=== PATIENT | male | born 1985 | race Caucasian/White ===

== ENCOUNTER 2017-11-20 05:57 | Inpatient (IN) | payer BC ==
[~2017-11-20 05:57] MED LIST: CEFAZOLIN 2 GM/50 ML (PMX) 50 ML IVPB
[2017-11-20] MEDS: LACTATED RINGER'S 1,000 ML IV* (06:30)
[2017-11-20 06:57] LABS: ADD MAN DIFF? NO
[2017-11-20] MEDS ORDERED: PROPOFOL 200 MG INJ (07:00)
[2017-11-20 07:01] LABS: WHITE BLOOD COUNT 9.1 10^3/ul (4.8-10.8)
[2017-11-20 07:01] LABS: BASOPHILS % 0.4 % (0.0-2.0); EOSINOPHILS # 0.3 10^3/ul (0.0-0.5); EOSINOPHILS % 3.3 % (0.0-7.0); HEMATOCRIT 46.6 % (42.0-52.0); HEMOGLOBIN 16.3 g/dl (14.0-18.0); LYMPHOCYTES # 3.3 10^3/ul (0.8-2.9); LYMPHOCYTES % 36.3 % (15.0-51.0); MEAN CORPUSCULAR HEMOGLOBIN 29.2 pg (29.0-33.0); MEAN CORPUSCULAR VOLUME 83.4 fl (82.0-101.0); MEAN PLATELET VOLUME 10.2 fl (7.4-10.4); MONOCYTE # 0.7 10^3/ul (0.3-0.9); MONOCYTES % 8.1 % (0.0-11.0); NEUTROPHIL # 4.7 10^3/ul (1.6-7.5); NEUTROPHILS % 51.5 % (39.0-77.0); PLATELET COUNT 223 10^3/UL (140-415); RED BLOOD COUNT 5.59 10^6/ul (4.70-6.10); RED CELL DISTRIBUTION WIDTH 12.1 % (11.5-14.5)
[2017-11-20 07:19] LABS: ALANINE AMINOTRANSFERASE 29 IU/L (13-69); ALBUMIN 4.9 g/dl (3.3-4.9); ALBUMIN/GLOBULIN RATIO 1.63; ALKALINE PHOSPHATASE 59 IU/L (42-121); ANION GAP 14 (8-16); ASPARTATE AMINO TRANSFERASE 33 IU/L (15-46); BILIRUBIN,INDIRECT 0.4 mg/dl (0-1.1); BILIRUBIN,TOTAL 0.4 mg/dl (0.2-1.3); BLOOD UREA NITROGEN 16 mg/dl (7-20); CALCIUM 9.7 mg/dl (8.4-10.2); CARBON DIOXIDE 27 mmol/L (21-31); CHLORIDE 108 mmol/L (97-110); CREATININE 0.73 mg/dl (0.61-1.24); GLUCOSE 94 mg/dl (70-220); POTASSIUM 4.1 mmol/L (3.5-5.1); SODIUM 145 mmol/L (135-144); TOTAL PROTEIN 7.9 g/dl (6.1-8.1)
[2017-11-20 07:22] LABS: INR 0.94; PROTIME 12.7 Sec (11.9-14.9)
[2017-11-20 07:23] LABS: PARTIAL THROMBOPLASTIN TIME 31.3 Sec (25.0-35.0)
[2017-11-20] MEDS ORDERED: PROPOFOL 20 ML (08:02)
[2017-11-20] MEDS ORDERED: LIDOCAINE 2% (SDV) 5 ML INJ (08:03)
[2017-11-20] MEDS ORDERED: SUCCINYLCHOLINE CHLORIDE 100 MG/5 ML SYG IV (08:03)
[2017-11-20] MEDS ORDERED: MIDAZOLAM 1 MG/ML 2 ML INJ (08:03)
[2017-11-20] MEDS ORDERED: ROCURONIUM 50 MG INJ (08:03)
[2017-11-20] MEDS: BUPIVACAINE 0.25%/EPI (MDV) 50 ML VIAL INJ (08:29)
[2017-11-20] MEDS: THROMBIN 5000 UNIT VIAL (08:29)
[2017-11-20] MEDS: POLYMYXIN/BACITRACIN 1L IRRIG IRR (08:29)
[2017-11-20] MEDS: HEMOSTATIC MATRIX SYG ZFS (08:29)
[2017-11-20] MEDS: CEFAZOLIN 2 GM/50 ML (PMX) 50 ML IVPB (09:00)
[2017-11-20] MEDS ORDERED: FAMOTIDINE 20 MG INJ (09:06)
[2017-11-20] MEDS ORDERED: ONDANSETRON 4 MG INJ (09:06)
[2017-11-20] MEDS ORDERED: DEXAMETHASONE 4 MG/ML 1 ML INJ (09:06)
[2017-11-20] MEDS ORDERED: MEPERIDINE 25 MG INJ IV (09:30)
[2017-11-20] MEDS ORDERED: hydrALAzine 20 MG INJ IV (09:30)
[2017-11-20] MEDS ORDERED: LABETALOL HCL 20MG INJ IV ×2 (09:30→12:00)
[2017-11-20] MEDS ORDERED: ONDANSETRON 4 MG INJ IV ×2 (09:30→11:00)
[2017-11-20] MEDS ORDERED: PROCHLORPERAZINE 10 MG INJ IV (09:30)
[2017-11-20] MEDS ORDERED: DIPHENHYDRAMINE 50 MG INJ IV (09:30)
[2017-11-20] MEDS ORDERED: FENTAnyl 50 MCG/ML VIAL IV ×3 (09:30)
[2017-11-20] MEDS ORDERED: HYDROmorphONE 1 MG/5 ML IV SYRINGE IV ×3 (09:30)
[2017-11-20] MEDS ORDERED: POLYMYXIN/BACITRACIN 1L IRRIG (10:06)
[2017-11-20] MEDS: BETAMET NA PHOS/AC(6 MG/ML) 5ML INJ (10:16)
[2017-11-20] MEDS ORDERED: SUGAMMADEX SODIUM 200 MG/2 ML VIAL IV (10:32)
[2017-11-20] MEDS ORDERED: NACL 0.9% 3 ML SYG IV ×2 (11:00→17:00)
[2017-11-20] MEDS ORDERED: NALOXONE (0.4 MG/ML) INJ IV (11:00)
[2017-11-20] MEDS ORDERED: PROCHLORPERAZINE 10 MG TAB PO (11:00)
[2017-11-20] MEDS ORDERED: HYDROmorphONE 0.5 MG/0.5 ML SYG IV (11:00)
[2017-11-20] MEDS ORDERED: ACETAMINOPHEN 325 MG TAB PO (11:00)
[2017-11-20] MEDS: OXYCODONE/ACETAMINOPHEN (5/325) TAB PO (12:41)
[2017-11-20] MEDS ORDERED: LACTATED RINGER'S 1,000 ML IV (14:30)
[2017-11-20 15:17] LABS: ABNORMAL IP MESSAGE 1; HEMATOCRIT 42.9 % (42.0-52.0); HEMOGLOBIN 14.9 g/dl (14.0-18.0); MEAN CORPUSCULAR HGB CONC 34.7 g/dl (32.0-37.0); MEAN CORPUSCULAR VOLUME 83.5 fl (82.0-101.0); MEAN PLATELET VOLUME 9.9 fl (7.4-10.4); PLATELET COUNT 213 10^3/UL (140-415); POSITIVE DIFF @See below; RED BLOOD COUNT 5.14 10^6/ul (4.70-6.10); RED CELL DISTRIBUTION WIDTH 12.2 % (11.5-14.5)
[2017-11-20 15:21] LABS: ANION GAP 16 (8-16); BLOOD UREA NITROGEN 13 mg/dl (7-20); CALCIUM 8.7 mg/dl (8.4-10.2); CARBON DIOXIDE 24 mmol/L (21-31); CHLORIDE 105 mmol/L (97-110); CREATININE 0.66 mg/dl (0.61-1.24); GLUCOSE 135 mg/dl (70-220); MAGNESIUM 1.6 mg/dl (1.7-2.5); POTASSIUM 4.2 mmol/L (3.5-5.1); SODIUM 141 mmol/L (135-144)
[2017-11-20 15:28] LABS: ADD MAN DIFF? YES; HOLD TRANSMISSIONS 1
[2017-11-20 15:49] LABS: BAND NEUTROPHILS #M 1.7 10^3/ul (0.0-0.6); BAND NEUTROPHILS % (M) 8 % (0-4); LYMPHOCYTES #M 2.8 10^3/ul (0.8-2.9); LYMPHOCYTES % (M) 13 % (15-51); MONOCYTE #M 0.2 10^3/ul (0.3-0.9); MONOCYTES % (M) 1 % (0-11); PLATELET ESTIMATE NORMAL; SEG NEUT #M 17.5 10^3/ul (1.6-7.5); SEGMENTED NEUTROPHILS (M) % 78 % (39-77); SMUDGE%M 3 % (0-0)
[2017-11-20] MEDS ORDERED: DOCUSATE SODIUM 100 MG CAP PO (17:00)
[2017-11-20] MEDS: METOPROLOL 25 MG TAB PO ×2 (17:14→20:44)
[2017-11-20 17:41] LABS: THYROID STIMULATING HORMONE 0.601 MIU/L (0.465-4.680)
[2017-11-20] MEDS: HYDROCODONE/APAP (5/325) TAB PO (18:55)
[2017-11-20] MEDS: SOD CHLORIDE 0.9% 1,000 ML IV (18:57)
[2017-11-20] MEDS: MAGNESIUM SULFATE 3 GM in DEXTROSE 5% 100 ML IVPB (20:43)
[2017-11-21] MEDS: SOD CHLORIDE 0.9% 1,000 ML IV ×2 (01:00→09:00)
[2017-11-21] MEDS: HYDROCODONE/APAP (5/325) TAB PO ×4 (04:05→12:16)
[2017-11-21 06:41] LABS: ADD MAN DIFF? NO
[2017-11-21 06:44] LABS: BASOPHILS % 0.2 % (0.0-2.0); EOSINOPHILS # 0.1 10^3/ul (0.0-0.5); EOSINOPHILS % 0.7 % (0.0-7.0); HEMATOCRIT 39.7 % (42.0-52.0); HEMOGLOBIN 13.7 g/dl (14.0-18.0); LYMPHOCYTES # 2.4 10^3/ul (0.8-2.9); LYMPHOCYTES % 15.8 % (15.0-51.0); MEAN CORPUSCULAR HEMOGLOBIN 28.9 pg (29.0-33.0); MEAN CORPUSCULAR HGB CONC 34.5 g/dl (32.0-37.0); MEAN CORPUSCULAR VOLUME 83.8 fl (82.0-101.0); MONOCYTE # 1.4 10^3/ul (0.3-0.9); MONOCYTES % 8.7 % (0.0-11.0); NEUTROPHIL # 11.5 10^3/ul (1.6-7.5); NEUTROPHILS % 74.3 % (39.0-77.0); PLATELET COUNT 193 10^3/UL (140-415); RED BLOOD COUNT 4.74 10^6/ul (4.70-6.10); RED CELL DISTRIBUTION WIDTH 12.5 % (11.5-14.5)
[2017-11-21 06:44] LABS: WHITE BLOOD COUNT 15.4 10^3/ul (4.8-10.8)
[2017-11-21 07:21] LABS: ANION GAP 12 (8-16); BLOOD UREA NITROGEN 11 mg/dl (7-20); CALCIUM 8.5 mg/dl (8.4-10.2); CARBON DIOXIDE 26 mmol/L (21-31); CHLORIDE 109 mmol/L (97-110); CREATININE 0.62 mg/dl (0.61-1.24); GLUCOSE 101 mg/dl (70-220); MAGNESIUM 2.2 mg/dl (1.7-2.5); PHOSPHORUS 2.8 mg/dl (2.5-4.9); POTASSIUM 4.3 mmol/L (3.5-5.1); SODIUM 143 mmol/L (135-144)
[2017-11-21] MEDS: METOPROLOL 25 MG TAB PO (09:07)
== END 2017-11-21 12:25 | disposition home or self-care (01) | DRG 520 ==
LOC: SDS 05:57 → TEL 18:27
PROC: 0SB40ZZ Excision of Lumbosacral Disc, Open Approach (ICD-10-PCS; principal; 2017-11-20 07:56)
PROC: 01NR0ZZ Release Sacral Nerve, Open Approach (ICD-10-PCS; 2017-11-20 07:56)
PROC: 4A11X4G Monitoring of Peripheral Nervous Electrical Activity, Intraoperative, External Approach (ICD-10-PCS; 2017-11-20 07:56)
DX: M51.17 Intervertebral disc disorders with radiculopathy, lumbosacral region (principal); R00.0 Tachycardia, unspecified
CPT/HCPCS: 72100; 80048; 80053; 83735; 84100; 84443; 85025; 85610; 85730; 93005; 93306; 97110; 97116; 97163